=== PATIENT | male | born 1995 ===

== ENCOUNTER → 2023-09-01 11:47 | Outpatient (REF) | payer OTHER, SELFPAY | LOC: CLAB 11:47 | PROVIDERS: ATTENDING PHYSICIAN Otolaryngology | DX: J03.01 Acute recurrent streptococcal tonsillitis (principal) | CPT/HCPCS: 87070; 87077; 87147; 87186; 87205 ==

== ENCOUNTER → 2023-09-30 04:20 | Outpatient (REF) | payer OTHER, SELFPAY | LOC: CLAB 04:20 | PROVIDERS: ATTENDING PHYSICIAN Otolaryngology | DX: J03.01 Acute recurrent streptococcal tonsillitis (principal) | CPT/HCPCS: 87070; 87205 ==